=== PATIENT | female | born 1990 | race Two or more races ===

== ENCOUNTER 2019-06-02 16:43 | Emergency (ER) | payer OTHER ==
[~2019-06-02] VITALS: Ht 175.3 cm; Wt 61.2 kg
--- NOTE | 2019-06-02 16:42 | NUR ---
ED Nurse Note: PT walked in to ED for C/O cough, SOB, Runny nose with sore throat x 4 days. pt reports her room mate tested positive for COVID 19 3 days ago
[2019-06-02 16:43] VITALS: BP 125/74
[2019-06-02] MEDS ORDERED: TYLENOL EXTRA500 MG ORAL (16:45)
[2019-06-02] MEDS ORDERED: GUAIFENESI100 MG/5 M ORAL (16:45)
--- NOTE | 2019-06-02 16:45 | Emergency Room Report ---
History of Present Illness General Chief Complaint: Flu Like Symptoms Source: Patient Present Illness HPI 28-year-old female with no signal past medical history, no COPD history and non- smoker here due to exposure to cope with 19. Patient and patient boyfriend live with a roommate who has been tested positive for covert 19 and they have been having cough and congestion for the past 3 days. Patient is afebrile. Sitting comfortably with stable vital signs. Denies any recent travel. Denies nausea vomiting, body aches. Has not been going to work for the past few days. Denies . COVID-19 risk:Contact w/high r: Yes COVID-19 risk:Travel to affect: No Has patient experienced fitzgerald: Yes Coronavirus symptoms experienc: Cough, Flu-Like Symptoms Allergies: Uncoded Allergies: PCN (Allergy, Unknown, 06/02/19) Patient History Past Surgical History: none Pertinent Family History: none Last Menstrual Period: na Now: No Immunizations: UTD Reviewed Nursing Documentation: PMH: Agreed; PSxH: Agreed Nursing Documentation-PMH Past Medical History: No Stated History Review of Systems All Other Systems: negative except mentioned in HPI Physical Exam Vital Signs Date Time Temp Pulse Resp B/P (MAP) Pulse Ox O2 Delivery O2 Flow Rate FiO2 06/02/19 16:38 97.9 82 18 120/74 (89) 98 Room Air Sp02 EP Interpretation: reviewed, normal General Appearance: no apparent distress, alert, GCS 15, non-toxic Head: normocephalic, atraumatic Eyes: bilateral eye normal inspection, bilateral eye PERRL ENT: hearing grossly normal, normal pharynx, no angioedema, normal voice Neck: full range of motion, supple, thyroid normal, no meningismus, no bony tend, no carotid bruits, supple/symm/no masses Respiratory: chest non-tender, lungs clear, normal breath sounds, no rhonchi, no retraction, no wheezing, speaking full sentences Cardiovascular #1: regular rate, rhythm, no edema Gastrointestinal: non tender Genitourinary: no CVA tenderness Musculoskeletal: back normal Neurologic: alert, motor strength/tone normal, oriented x3, sensory intact, responsive, speech normal Psychiatric: judgement/insight normal Skin: no rash Lymphatic: no adenopathy Medical Decision Making PA Attestation All my diagnosis and treatment plans were reviewed ad discussed with my supervising physician Dr. Chaves Diagnostic Impression: Primary Impression: Exposure to 2019 novel coronavirus ER Course 28-year-old female with no signal past medical history, no COPD history and non- smoker here due to exposure to cope with 19. Patient and patient boyfriend live with a roommate who has been tested positive for covert 19 and they have been having cough and congestion for the past 3 days. Patient is afebrile. Sitting comfortably with stable vital signs. Denies any recent travel. Denies nausea vomiting, body aches. Has not been going to work for the past few days. Denies . Ddx considered but are not limited to: Coronavirus, strep pharyngitis, URI, tonsillitis, peritonsillar abscess, influneza Vital signs: are WNL, pt. is afebrile H&PE are most consistent with: Exposure to coronavirus ORDERS: Guaifenesin, Tylenol ED INTERVENTIONS: None required at this time. DISCHARGE: At this time pt. is stable for d/c to home. Will provide printed patient care instructions, and any necessary prescriptions. Care plan and follow up instructions have been discussed with the patient prior to discharge. Take medication as directed, follow-up with your primary doctor, you need to stay home for self quarantine due to Covid 19 precautions for 14 days Last Vital Signs Date Time Temp Pulse Resp B/P (MAP) Pulse Ox O2 Delivery O2 Flow Rate FiO2 06/02/19 16:38 97.9 82 18 120/74 (89) 98 Room Air Disposition: HOME, SELF-CARE Condition: Stable Scripts Guaifenesin* (GUAIFENESIN*) 100 Mg/5 Ml Liquid 15 ML ORAL Q8H, #120 ML 0 Refills Prov: Handy Rodriguez 06/02/19 Acetaminophen* (TYLENOL EXTRA STRENGTH*) 500 Mg Tablet 500 MG ORAL Q8H PRN for Prn Headache/Temp > 101, #30 TAB 0 Refills Prov: Handy Rodriguez 06/02/19 Patient Instructions: Upper Respiratory Infection, Adult, [id number] Additional Instructions: Take medication as directed, follow-up with your primary doctor, you need to stay home for self quarantine due to Covid 19 precautions for 14 days Handy Rodriguez Jun 02, 2019 16:45
--- NOTE | 2019-06-02 17:00 | NUR ---
ED Nurse Note: COVID swab sent to lab
[2019-06-02 17:11] VITALS: BP 120/80
--- NOTE | 2019-06-02 17:11 | NUR ---
ER DISCHARGE NOTE: Patient is cleared to be discharged per ERMD, pt is aox4, on room air, with stable vital signs. pt was given dc and prescription instructions, pt was able to verbalize understanding, pt id band removed without complications. pt is able to ambulate with steady gait. pt took all belongings.
== END 2019-06-02 17:11 | disposition home or self-care (01) ==
LOC: EDBD 16:43 → EMR 17:00
DX: R05 Cough (principal); Z20.828 Contact with and (suspected) exposure to other viral communicable diseases
CPT/HCPCS: 99282